=== PATIENT | male | born 1960 | race Caucasian/White ===

== ENCOUNTER 2019-11-05 07:39 | Emergency (ER) | payer MEDICAID ==
[~2019-11-05] VITALS: Ht 175.3 cm; Wt 72.7 kg
[2019-11-05] MEDS ORDERED: ACET-3067 PO (08:50)
[2019-11-05] MEDS ORDERED: cyclobenzaprine 10mg tablet PO ONE (08:50)
[2019-11-05] MEDS ORDERED: IBUP-1984 PO (08:50)
[2019-11-05] MEDS ORDERED: ketorolac trometh inj. 60 MG/2 ML VIAL IM ONE (08:50)
[2019-11-05] MEDS ORDERED: CYCL-1 PO (08:50)
[2019-11-05] MEDS ORDERED: HYDROcodone/acetaminophen 5mg/325mg tablet PO ONE (08:50)
[2019-11-05 09:37] VITALS: BP 123/99
== END 2019-11-05 09:40 | disposition home or self-care (01) ==
LOC: ER 07:39
DX: M54.42 Lumbago with sciatica, left side (principal); F12.90 Cannabis use, unspecified, uncomplicated; Z98.890 Other specified postprocedural states; Z72.89 Other problems related to lifestyle; Z79.899 Other long term (current) drug therapy
CPT/HCPCS: 96372; 99283; J1885

== ENCOUNTER 2021-10-31 16:34 | Emergency (ER) | payer MEDICAID ==
[~2021-10-31] VITALS: Ht 175.3 cm; Wt 72.7 kg
[~2021-10-31 16:34] MED LIST: CYCL-1 PO
[2021-10-31 17:14] VITALS: BP 140/90
== END 2021-10-31 20:32 | disposition left against medical advice (07) ==
LOC: ER 16:35
DX: R50.9 Fever, unspecified (principal); R10.9 Unspecified abdominal pain; Z53.21 Procedure and treatment not carried out due to patient leaving prior to being seen by health care provider

== ENCOUNTER 2022-05-31 08:51 | Emergency (ER) | payer MEDICAID ==
[~2022-05-31] VITALS: Ht 177.8 cm; Wt 70.5 kg
[2022-05-31] MEDS ORDERED: LIDOcaine 1% 30ml preserv. free vial IJ ONE (11:25)
[2022-05-31] MEDS ORDERED: HYDROcodone/acetaminophen 10/325mg tab PO ONE (11:25)
[2022-05-31 11:50] VITALS: BP 156/93
[2022-05-31] MEDS ORDERED: CEPH-585 PO (13:08)
[2022-05-31] MEDS ORDERED: SULF1TAB49 PO (13:08)
[2022-05-31] MEDS ORDERED: HYDR-3972 PO (13:08)
== END 2022-05-31 13:27 | disposition home or self-care (01) ==
LOC: ER 08:52
DX: L02.512 Cutaneous abscess of left hand (principal); F17.200 Nicotine dependence, unspecified, uncomplicated; F12.10 Cannabis abuse, uncomplicated; Z79.899 Other long term (current) drug therapy
CPT/HCPCS: 26010; 87070; 87077; 87186; 99283; J7030; A6449

== ENCOUNTER 2022-07-21 17:21 | Emergency (ER) | payer MEDICAID ==
[~2022-07-21] VITALS: Ht 175.3 cm; Wt 77.0 kg
[~2022-07-21 17:21] MED LIST changes: +CEPH-585 PO
[2022-07-21 17:23] VITALS: BP 146/84
[2022-07-21] MEDS ORDERED: cephalexin 500mg capsule PO ONE (18:35)
[2022-07-21] MEDS ORDERED: sulfamethoxazole/trimethoprim DS (800/160mg) tablet PO ONE (18:35)
[2022-07-21] MEDS ORDERED: SULF1TAB49 PO (18:38)
[2022-07-21] MEDS ORDERED: CEPH500C82 PO (18:38)
== END 2022-07-21 18:43 | disposition home or self-care (01) ==
LOC: ER 17:21
DX: L02.511 Cutaneous abscess of right hand (principal); F12.10 Cannabis abuse, uncomplicated; Z79.899 Other long term (current) drug therapy
CPT/HCPCS: 99283

== ENCOUNTER 2023-04-07 09:52 | Emergency (ER) | payer MEDICAID ==
[~2023-04-07] VITALS: Ht 175.3 cm; Wt 180.6 kg
[2023-04-07 10:32] VITALS: BP 142/94; PULSE 101; RESP 16; O2SAT 97
[2023-04-07] MEDS ORDERED: DOXY-1 PO (12:20)
[2023-04-07 13:29] VITALS: TEMP 98
== END 2023-04-07 13:32 | disposition home or self-care (01) ==
LOC: ER 09:52
DX: L03.113 Cellulitis of right upper limb (principal); F12.90 Cannabis use, unspecified, uncomplicated; Z72.89 Other problems related to lifestyle; Z79.2 Long term (current) use of antibiotics; Z79.899 Other long term (current) drug therapy
CPT/HCPCS: 99283